=== PATIENT | female | born 1960 | race American Indian/Alaskan Native ===

== ENCOUNTER 2018-08-11 09:51 | Outpatient (CLI) | payer OTHER ==
--- NOTE | 2018-08-11 10:34 | XRay Report ---
RIGHT FOOT RADIOGRAPHS INDICATION: Pain. COMPARISON: None similar at this institution. FINDINGS: AP, lateral and oblique right foot radiographs demonstrate intact bony articulation. Small to moderate plantar and dorsal calcaneal spurs. Unremarkable soft tissues. CONCLUSION: Right calcaneal degenerative spurring without acute radiographic abnormality. Please correlate. Thank you for the opportunity to participate in this patient's care.
--- NOTE | 2018-08-11 16:37 | Mammography Report ---
BILATERAL DIGITAL AUGMENTED SCREENING MAMMOGRAM with CAD: 08/11/18 09:51:00 CLINICAL: Routine screening. COMPARISON:None available. FINDINGS: Screening views with and without implant displacement demonstrate almost entirely fatty breasts. No mass, architectural distortion or suspicious calcifications. Intact subpectoral implants. IMPRESSION: No mammographic evidence of malignancy. BI-RADS CATEGORY: 2 -- Benign RECOMMENDATION: Routine mammographic screening in one year. ACR BI-RADS MAMMOGRAPHIC CODES: 0 = Needs additional imaging evaluation; 1 = Negative; 2 = Benign; 3 = Probably benign; 4 = Suspicious; 5 = Malignant; 6 = Known biopsy-proven malignancy COMMENT: 1. Dense breast tissue, i.e., adenosis, fibrocystic changes, etc., may obscure an underlying neoplasm. 2. Approximately 10% of cancers are not detected with mammography. 3. A negative mammography report should not delay biopsy if a clinically suspicious mass is present. COMMENT: Patient follow-up letters are generated via our [employer] application.
== END 2018-08-11 09:52 | disposition home or self-care (01) ==
LOC: MAMMO 09:51
PROVIDERS: ATTEND Physician Assistant Medical
DX: Z12.31 Encounter for screening mammogram for malignant neoplasm of breast (principal); M77.51 Other enthesopathy of right foot and ankle
CPT/HCPCS: 77067